=== PATIENT | female | born 1975 | race Caucasian/White ===

== ENCOUNTER 2018-06-19 13:43 | Emergency (ER) | payer BC, OTHER ==
--- NOTE | 2018-06-19 14:02 | ED.PDOC ---
History of Present Illness - General Chief Complaint: GI Problem Stated Complaint: vomiting Time Seen by Provider: 06/19/18 13:51 Information Source: patient Exam Limitations: no limitations - History of Present Illness Initial Comments: Sarah Gonzalez 42 y/o female came to er with nausea/vomiting since this morning and had some abdominal discomfort with it.No diarrhea,no dizziness ,no dysuria ,no hematemesis,unable to get anything down to her gi tract since it started has normal bm.Stated had small amounts of alcohol last night but stating does not cause her to throw up.No chronic medical problem Abdominal Pain Onset Location: other - abdominal discomfort Pain Radiation: no radiation Timing/Duration: other - discomfort Improving Factors: nothing Worsening Factors: eating Associated Symptoms: nausea/vomiting Review of Systems - Review of Systems Constitutional: States: no symptoms reported EENTM: States: no symptoms reported Respiratory: States: no symptoms reported Cardiology: States: no symptoms reported Gastrointestinal/Abdominal: States: see HPI Genitourinary: States: no symptoms reported Past Medical History (General) - Patient Medical History Hx Other PMH: Yes - nephrolithiasis Surgical History: cholecystectomy - Social History Hx Physical Abuse: No Hx Emotional Abuse: No - Female History Patient : No - uterine ablation;[employer] Family Medical History - Family History Father Hx Family Hypertension: Yes - mom Hx Family Cancer: Yes - dad-prostate,lymphoma,skin Physical Exam - Physical Exam General Appearance: Alert, Comfortable, No apparent distress Eyes, Ears, Nose, Throat Exam: normal ENT inspection, TMs normal, pharynx normal Neck: non-tender, full range of motion, supple, normal inspection Respiratory: chest non-tender, lungs clear, normal breath sounds, no respiratory distress Cardiovascular/Chest: normal peripheral pulses, regular rate, rhythm, no murmur Gastrointestinal/Abdominal: normal bowel sounds, soft, no organomegaly, tenderness - mid abdomen no peritoneal signs Back Exam: no CVA tenderness, no vertebral tenderness Extremity: normal inspection, no pedal edema, no calf tenderness Neurologic: alert, oriented x 3 Skin Exam: normal color, warm/dry Lymphatic: no adenopathy Progress - Progress Progress: 06/19/18 16:23 Vital Signs - 8 hr 06/19/18 06/19/18 06/19/18 13:50 14:43 15:45 Temperature 99.3 F 98.6 F Pulse Rate [ 95 H 81 80 Left Radial] Respiratory 18 16 16 Rate Blood Pressure 151/92 128/92 131/85 [Left Arm] O2 Sat by Pulse 95 98 100 Oximetry - Results/Orders Results/Orders: 06/19/18 14:07 IV Care:Saline Lock per Protoc QSHIFT Laboratory Results - last 24 hr 06/19/18 06/19/18 14:14 15:35 WBC 10.4 RBC 4.66 Hgb 15.3 Hct 44.8 MCV 96.1 MCH 32.8 H MCHC 34.2 RDW 13.3 Plt Count 255 MPV 8.4 Absolute Neuts (auto) 7.10 H Absolute Lymphs (auto) 2.60 Absolute Monos (auto) 0.60 Absolute Eos (auto) 0.10 Absolute Basos (auto) 0.10 Neutrophils % 68.0 Lymphocytes % 24.8 Monocytes % 5.5 Eosinophils % 0.7 L Basophils % 1.0 PT 9.2 INR 0.92 PTT (SP) 23.0 Sodium 138 Potassium 3.7 Chloride 102 Carbon Dioxide 26 Anion Gap 13.7 BUN 12 Creatinine 0.97 BUN/Creatinine Ratio 12.4 Random Glucose 93 Serum Osmolality 275.1 Calcium 9.4 Magnesium 1.8 Total Bilirubin 0.5 Direct Bilirubin < 0.1 Indirect Bilirubin 0.4 AST 20 ALT 15 Alkaline Phosphatase 58 Creatine Kinase 130 CK-MB (CK-2) 2.6 CK-MB (CK-2) % Not Reportable Troponin I < 0.02 Serum Total Protein 7.7 Albumin 4.3 Lipase 26 Urine Color Yellow Urine Appearance Clear Urine pH 7.5 Ur Specific [place] 1.015 Urine Protein Negative Urine Glucose (UA) Negative Urine Ketones Negative Urine Blood Trace-intact H Urine Nitrite Negative Urine Bilirubin Negative Urine Urobilinogen 0.2 Ur Leukocyte Esterase Negative Urine RBC 0-1 Urine WBC 0 Ur Epithelial Cells 0 Urine Bacteria 0 Discuss all test result with patient no acute abormalities found and mentioned that she might some form of viral illness-gi;no further vomiting noted while in ER Departure - Departure Clinical Impression: Nausea & vomiting Qualifiers: Vomiting type: unspecified Vomiting Intractability: non-intractable Qualified Code(s): R11.2 - Nausea with vomiting, unspecified Time of Disposition: 16:26 Disposition: Discharge to Home or Self Care Condition: Good Departure Forms: ED Discharge - Pt. Copy, Patient Portal Self Enrollment Instructions: [place] Diet, Nausea and Vomiting, Adult (DC) Diet: other - Avoid greasy /spicy foods until better Referrals: Rama Conrad MD [Primary Care Provider] - 1-2 Weeks Prescriptions: Ondansetron Odt [Zofran ODT] 8 mg PO Q8HRS PRN #10 tab PRN Reason: Vomiting Home Medications: Ambulatory Orders Ondansetron Odt [Zofran ODT] 8 mg PO Q8HRS PRN #10 tab 06/19/18 Additional Instructions: Return to ER if symptoms worsens
[2018-06-19] MEDS ORDERED: SODIUM CHLORIDE 0.9% 100ML 100 ML IVPB ONE (14:10)
[2018-06-19] MEDS ORDERED: PANTOPRAZOLE SODIUM IV 40 MG VIAL ONE (14:10)
[2018-06-19] MEDS: LACTATED RINGERS 1,000 ML IVS ONE (14:14)
[2018-06-19] MEDS: ONDANSETRON INJ 4 MG/2 ML VIAL IV ONE (14:18)
[2018-06-19] MEDS: PANTOPRAZOLE INJECTION 80 MG in SODIUM CHLORIDE 0.9% 100ML 80 ML IVPB ONE (14:18)
[2018-06-19] MEDS: KETOROLAC TROMETHAMINE INJ 30 MG/ML VIAL IV ONE (14:43)
[2018-06-19] MEDS: PROMETHAZINE HCL INJ 25 MG/ML VIAL IM ONE (14:49)
--- NOTE | 2018-06-19 14:49 | RAD ---
EXAM DESCRIPTION: Chest,1 View CLINICAL HISTORY: N/V COMPARISON: None FINDINGS: Cardiac silhouette is within normal limits. There is no focal parenchymal or pleural disease. There is no acute osseous process visualized. IMPRESSION: No evidence of acute cardiopulmonary disease. Electronically signed by: Ruiz Velasco MD 06/19/2018 2:48 PM CDT
--- NOTE | 2018-06-19 14:50 | RAD ---
EXAM DESCRIPTION: Abdomen Flat Upright CLINICAL HISTORY: N/V COMPARISON: None FINDINGS: Supine and upright images of the abdomen were submitted. There is no free air in the abdomen. There is no evidence of bowel obstruction. Surgical clips in the right upper quadrant compatible with prior cholecystectomy. Calcifications within the pelvis compatible with phleboliths. IMPRESSION: No acute abnormalities. Electronically signed by: Ruiz Velasco MD 06/19/2018 2:49 PM CDT
[2018-06-19 16:45] VITALS: BP 126/85; TEMP 98.9; O2SAT 98
== END 2018-06-19 16:43 | disposition home or self-care (01) ==
LOC: ER 13:43
DX: R11.2 Nausea with vomiting, unspecified (principal)
CPT/HCPCS: 36415; 71045; 74019; 80048; 80076; 81001; 82550; 82553; 83690; 84484; 85025; 85610; 85730; J1885; J2060; J2405; J2550; J7050; J7120